=== PATIENT | male | born 1985 | race Hispanic/Latino ===

== ENCOUNTER 2024-03-26 13:48 | Emergency (ER) | payer SELFPAY ==
[~2024-03-26] VITALS: Ht 165.1 cm; Wt 86.2 kg
--- NOTE | 2024-03-26 13:54 | ERN ---
ED Note History of Present Illness Stated Complaint: HEADACHE Chief Complaint: Headache Time Seen by MD: 13:50 Dictation: PATIENT IS A 38-YEAR-OLD MALE COMING IN WITH COMPLAINTS OF A BILATERAL FRONTAL HEADACHE WORSE ON THE RIGHT ONSET WAS FRIDAY. NO FEVER NO CHILLS NO NAUSEA VOMITING STATES HE HAS HAD A CLEAR RUNNY NOSE. STATES HE WAS SICK LAST WEEK HOWEVER DID NOT GO SEEK MEDICAL ATTENTION, DOES NOT HAVE A PRIMARY CARE DOCTOR. HE STATES HE TOOK TYLENOL EARLIER THIS MORNING WITHOUT RELIEF. [facility] IS 0 STATE GAIT IS STEADY TO TRIAGE AND HE DROVE HIMSELF TO THE EMERGENCY ROOM. Allergies: Coded Allergies: No Known Drug Allergies (Unverified Allergy, Unknown, 03/26/24) Past Medical History PSYCH History: no pertinent psych hx RN Note Reviewed/Agreed w/PFSH: Yes Review of System Dictation CONSTITUTIONAL: NEGATIVE EXCEPT FOR HPI HEAD/FACE: NEGATIVE EXCEPT FOR HPI EENT: NEGATIVE EXCEPT FOR HPI SINUS HEADACHE RESPIRATORY: NEGATIVE EXCEPT FOR HPI GASTROINTESTINAL/ABDOMINAL: NEGATIVE EXCEPT FOR HPI GENITOURINARY: NEGATIVE EXCEPT FOR HPI MUSCULOSKELETAL: NEGATIVE EXCEPT FOR HPI INTEGUMENTARY: NEGATIVE EXCEPT FOR HPI NEUROLOGICAL/PSYCH: NEGATIVE EXCEPT FOR HPI HEMATOLOGIC/LYMPHATIC: NEGATIVE EXCEPT FOR HPI ALL SYSTEMS NEGATIVE, EXCEPT NOTED ABOVE. 13 POINT REVIEW OF SYSTEMS ASSESSED AND ALL NEGATIVE EXCEPT FOR ABOVE. Initial Vital Sign VS Vital Signs Date Time Temp Pulse Resp B/P (MAP) Pulse Ox O2 Delivery O2 Flow Rate FiO2 03/26/24 13:49 97.9 82 20 170/110 99 Room Air 0 Physical Exam Dictation VITAL SIGNS REVIEWED GENERAL APPEARANCE: ALERT, ORIENTED X 3, MILD ACUTE DISTRESS, WELL DEVELOPED, NOURISHED. HEAD AND FACE: NON-TRAUMATIC. EYES: PERRL, PINK CONJUNCTIVAS, EYELID NO TRAUMA, ANTERIOR CHAMBER WITH ARCUS SENILIS. EARS: PINNAS INTACT AND NO SIGNS OF TRAUMA OR ERYTHEMA EAR CANALS CLEAR AND NO DISCHARGE TM NO ERYTHEMA NOSE: CLEAR DISCHARGE, NO BLEEDING. MILD FRONTAL SINUS TENDERNESS WITH PALPATION OROPHARYNX: MOUTH NORMAL, TONGUE PINK, PHARYNX CLEAR,NO ERYTHEMA, TONSILS NO EXUDATES, NO ABSCESSES NOTED, MUCOUS MEMBRANE MOIST NECK: SUPPLE, NON-TENDER, NO THYROMEGALY, NO MASSES, NO JVD, NO BRUITS BREAST:DEFERRED CHEST:NO TENDERNESS, NO CREPITUS, NO PARADOXICAL MOVEMENT, NO RETRACTIONS LUNGS:CLEAR, WELL-VENTILATED, SYMMETRIC, NO RALES, NO WHEEZING, NO RHONCHI, NO STRIDOR, GOOD BREATH SOUNDS BILATERALLY HEART: REGULAR RATE, REGULAR RHYTHM, NO MURMUR, NO GALLOPS VASCULAR: NO PERIPHERAL EDEMA, ABDOMEN: SOFT, POSITIVE BOWEL SOUNDS, NONDISTENDED, NO GUARDING, NONTENDER, NO REBOUND, NO MASSES NO HEPATOMEGALY, NO SPLENOMEGALY, NO CASTILLO'S SIGN, NO HERNIAS. RECTAL: DEFERRED GENITAL: DEFERRED NEUROLOGICAL: NORMAL SPEECH, MOTOR FUNCTION INTACT, SENSORY FUNCTION INTACT MUSCULOSKELETAL: NECK NONTENDER, FULL RANGE OF MOTION, BACK NONTENDER, FULL RANGE OF MOTION, EXTREMITIES: NONTENDER, FULL RANGE OF MOTION SKIN: COLOR PINK, DRY, NO TURGOR, NO RASH, NO LACERATIONS, NO ABRASIONS, NO CONTUSIONS. LYMPHATIC: DEFERRED Results (Laboratory/Radiology) Laboratory/Radiology Laboratory Tests Test 03/26/24 14:40 SARS-CoV-2 Antigen (Rapid) PRESUMPTIVE NEGATIVE Labs Reviewed?: Yes ED Course ED Course Orders Procedure Category Date Status Time Dexamethasone 4mg/Ml PHA 03/26/24 Complete 1ml Vial (Dexametha 14:00 Ibuprofen 800 Mg Tab PHA 03/26/24 Complete (Motrin) 14:00 Covid19 (Sars Antigen LAB 03/26/24 Complete Rapid) 13:54 Current Medications Medications (Trade) Dose Ordered Sig/Radha Route PRN Reason Start Time Stop Time Status Last Admin Dose Admin Dexamethasone Sodium Phosphate (dexaMETHasone 4MG/ML 1ML VIAL) 8 mg ONCE ONCE IM 03/26/24 14:00 03/26/24 14:05 DC 03/26/24 14:11 Ibuprofen (moTRIN) 800 mg ONCE ONCE PO 03/26/24 14:00 03/26/24 14:05 DC 03/26/24 14:11 Vital Signs Date Time Temp Pulse Resp B/P (MAP) Pulse Ox O2 Delivery O2 Flow Rate FiO2 03/26/24 13:49 97.9 82 20 170/110 99 Room Air 0 1545, PATIENT STATES PAIN IS MARKEDLY REDUCED AFTER TREATMENT. PATIENT CONTINUES TO BE HYPERTENSIVE, WE WILL PRESCRIBE ENALAPRIL5 MG P.O. DAILY AND HAVE PATIENT FOLLOW UP WITH ONE OF THE DOCTORS ON THE LIST PROVIDED HIM IN THE NEXT 2-3 DAYS. Medical Decision Making MDM MEDICAL DISCHARGE MAKING BASED ON EMPIRIC TREATMENT FOR TENSION HEADACHE, SWABS FOR COVID-19. SWAB NEGATIVE PAIN RELIEVED AFTER TREATMENT. PATIENT INFORMED OF HIS HYPERTENSION DIAGNOSES AND WE WILL BE PRESCRIBED ENALAPRIL 5 MG DAILY GIVEN A LIST OF THE PRIMARY CARE DOCTORS [place] [facility] [place] IN [place]EXT SEVERAL [place]. DX & DISP Disposition: Discharge Departure Impression: Primary Impression: Acute headache Additional Impression: Hypertension Condition: Stable Scripts Enalapril Maleate (Enalapril Maleate) 5 Mg Tablet 1 TAB PO DAILY for 30 Days, #30 TAB 0 Refills Prov: YESY BEASLEY NP 03/26/24 Additional Instructions: FOLLOW-UP WITH PRIMARY CARE PROVIDER IN 1 TO 2 DAYS. TAKE MEDICATIONS DIRECTED HERE IN THE EMERGENCY ROOM. OKAY TO CONTINUE HOME MEDICATIONS UNLESS OTHERWISE DISCUSSED DURING YOUR VISIT IN THE EMERGENCY ROOM TODAY. RETURN TO YOUR NEAREST EMERGENCY ROOM IF SYMPTOMS WORSEN OR IF THERE IS NO IMPROVEMENT. CALL 911 IF YOU NEED IMMEDIATE ASSISTANCE. TAKE TYLENOL OR MOTRIN [id number] NEEDED AND IF NO CONTRAINDICATIONS ARE PRESENT. INCREASE ORAL HYDRATION. A WOUND CULTURE OR URINE CULTURE WAS ORDERED HERE IN THE EMERGENCY ROOM DEPARTMENT PLEASE FOLLOW-UP WITH PRIMARY CARE PROVIDER AND ADVISE THEM TO GET REPEAT PORTS FROM OUR FACILITY. IF YOU HAD ANY YOSI WRAP/SPLINTS THAT WERE APPLIED HERE, PLEASE DO NOT REMOVE THEM UNTIL YOU SEE YOUR PRIMARY CARE OR SPECIALTY. TAKE TYLENOL OR LEAVE [id number] NEEDED FOR PAIN. TAKE YOUR BLOOD PRESSURE MEDICATION DIRECTED DAILY. FOLLOW UP WITH ONE OF THE DOCTORS ON THE LIST PROVIDED YOU IN THE NEXT 2-3 DAYS FOR MANAGEMENT OF YOUR BLOOD PRESSURE. Time of Disposition: 15:47 I have reviewed the case, and I agree with, Diagnosis and Plan YESY BEASLEY NP Mar 26, 2024 13:54
[2024-03-26] MEDS: ibuPROFEN 800 MG TAB PO ONE (14:11)
[2024-03-26] MEDS: dexaMETHasone SOD PHOSPHATE 4 MG/ML 1ML VIAL IM ONE (14:11)
[2024-03-26] MEDS ORDERED: ENAL-87 PO (15:48)
[2024-03-26 16:42] VITALS: BP 160/89; PULSE 72; RESP 16; TEMP 98; O2SAT 98
== END 2024-03-26 16:43 | disposition home or self-care (01) ==
LOC: EDH 13:48
DX: R51.9 Headache, unspecified (principal); I10 Essential (primary) hypertension; Z20.822 Contact with and (suspected) exposure to COVID-19
CPT/HCPCS: 99283; 87426; 96372; J1100

== ENCOUNTER 2024-09-05 22:16 | Emergency (ER) | payer SELFPAY ==
[~2024-09-05] VITALS: Ht 157.5 cm; Wt 95.3 kg
[~2024-09-05 22:16] MED LIST: ENAL-87 PO
--- NOTE | 2024-09-05 22:40 | ERN ---
ED Note History of Present Illness Stated Complaint: LEFT FOOT NUMBNESS Chief Complaint: Numbness Time Seen by MD: 22:31 Time Seen by Midlevel: 22:33 Dictation: 38-year-old male coming in with complaints of tingling sensation to the left foot onset 5:00 a.m.. Patient states he has a history of hypertension noncompliant. States he took his blood pressure medication just today at 6:30 a.m. because he thought that was a reason he was having these symptoms, but does not remember the name of the medication that he took. Denies any unilateral weakness, slurred speech, headache, dizziness. Patient has full range of motion to all extremities at the time of triage. Patient also states last night he did cocaine. Allergies: Coded Allergies: No Known Drug Allergies (Unverified Allergy, Unknown, 03/26/24) Home Meds Active Scripts Metformin HCl (Metformin HCl) 500 Mg Tablet, 1 TAB PO DAILY for 10 Days, #60 TAB 0 Refills Prov:JASON CORNELL EARLY CHILDHOOD 09/06/24 Enalapril Maleate (Enalapril Maleate) 5 Mg Tablet, 1 TAB PO DAILY for 30 Days, #30 TAB 0 Refills Prov:YESY BEASLEY [employer]ARLY CHILDHOOD 03/26/24 Past Medical History Past Medical History: Hypertension, Other Additional Past Medical Hx: NON COMPLIANT Surgical History: None, Unknown Review of System Dictation Constitutional: Negative for fever,chills, and weight loss Eyes: Negative for injury, pain,redness, and discharge ENT: Negative for injury,pain or swelling Cardiovascular: Negative for chest pain, palpitations, and edema Respiratory: Negative for shortness of breath, cough, and wheezing, Abdomen/GI: Negative for abdominal pain, nausea, vomiting, diarrhea, and constipation Back: Negative for injury and pain : Negative for injury, bleeding and discharge MS/Extremity: Negative for injury and deformity Skin: Negative for rash, and discoloration Neuro: Negative for headache, weakness, numbness, " tingling" sensation upon touch in the left foot Psych: Negative for suicide ideation, homicidal ideation, and hallucinations Review of Systems: was completed Initial Vital Sign VS Vital Signs Date Time Temp Pulse Resp B/P (MAP) Pulse Ox O2 Delivery O2 Flow Rate FiO2 09/05/24 22:17 98.1 113 20 163/113 99 Room Air 09/05/24 23:46 0 21 Physical Exam Dictation General: awake, alert, NAD Head/Face: Normocephalic, atraumatic Eyes: PERRL, EOMI, vision at baseline ENT: oral cavity clear, TMs clear, no signs of infection Neck: Trachea midline, supple, no nuchal rigidity Cardiovascular: RRR, normal S1/S2, No MRGs, no JVD Respiratory: CTAB, no respiratory distress, No rales or wheezes Abdomen: Soft, non-tender, non-distended, normal bowel sounds, no guarding or rebound. Skin: Warm, dry, normal turgor, no rash MS/Extremity: Pulses equal, no cyanosis, neurovascular intact, FROM Neuro: COAx4, GCS 15, strength 5/5, CN 2-12 intact, normal cerebellar exam, normal gait, used a blunt needle to press on patient's foot, patient is able to feel me touching his foot with a needle. Patient states the time that he ambulates he feels a ball" the bottom of the foot. Psych: Normal behavior, mood, and affect normal Results (Laboratory/Radiology) Laboratory/Radiology Laboratory Tests Test 09/05/24 22:47 09/06/24 00:28 White Blood Count 10.3 K/uL (4.8-10.8) Red Blood Count 5.22 MIL/uL (4.50-6.20) Hemoglobin 15.0 g/dL (14.0-18.0) Hematocrit 44.2 % (42-54) Mean Corpuscular Volume 84.7 fL (79-99) Mean Corpuscular Hemoglobin 28.7 pg (27.0-33.0) Mean Corpuscular Hemoglobin Concent 33.9 g/dL (32.0-36.0) Red Cell Distribution Width 12.7 % (11.0-15.5) Platelet Count 245 K/uL (130-400) Mean Platelet Volume 10.4 fL (7.5-10.5) Immature Granulocyte % (Auto) 0.3 % (0-1) Neutrophils (%) (Auto) 62.6 % (40.0-77.0) Lymphocytes (%) (Auto) 27.7 % (21.0-51.0) Monocytes (%) (Auto) 7.4 % (3.0-13.0) Eosinophils (%) (Auto) 1.6 % (0.0-8.0) Basophils (%) (Auto) 0.4 % (0.0-5.0) Neutrophils # (Auto) 6.4 K/uL (1.8-7.7) Lymphocytes # (Auto) 2.8 K/uL (1.0-4.8) Monocytes # (Auto) 0.8 K/uL (0.1-1.0) Eosinophils # (Auto) 0.16 K/uL (0.00-0.70) Basophils # (Auto) 0.04 K/uL (0.00-0.20) Absolute Immature Granulocyte (auto 0.03 K/uL (0-1) Nucleated Red Blood Cells 0.0 % (0.0-0.19) Sodium Level 138 mmol/L (136-145) Potassium Level 3.6 mmol/L (3.5-5.1) Chloride Level 100 mmol/L (101-111) L Carbon Dioxide Level 26 mmol/L (21-32) Blood Urea Nitrogen 16 mg/dL (7-18) Creatinine 0.9 mg/dL (0.5-1.3) Glomerular Filtration Rate Calc 113 mL/min (>90) Random Glucose 355 mg/dL (70-105) H Total Calcium 8.4 mg/dL (8.5-10.1) L Troponin I High Sensitivity < 4 ng/L (4-75) L Whole Blood Glucose 328 MG/DL (70-110) H Labs Reviewed?: Yes ED Course ED Course Orders Procedure Category Date Status Time Cbc With Differential LAB 09/05/24 Complete 22:36 Basic Metabolic Panel LAB 09/05/24 Complete 22:36 12 Lead Ekg Tracing- EKG 09/05/24 Complete Technical 22:36 Troponin I High LAB 09/05/24 Complete Sensitivity 22:36 0.9%Nacl 1000ml (Ns PHA 09/05/24 Complete 1000ml) 23:45 Insulin Regular, PHA 09/05/24 Complete Human 3ml (Humulin R 23:45 0.9%Nacl 1000ml (Ns PHA 09/06/24 In Process 1000ml) 00:38 Current Medications Medications (Trade) Dose Ordered Sig/Radha Route PRN Reason Start Time Stop Time Status Last Admin Dose Admin Insulin Human Regular (humuLIN R 100 UNIT/ML 3ML) 7 unit ONCE STAT IV 09/05/24 23:45 09/05/24 23:49 DC 09/06/24 00:04 Sodium Chloride 1,000 ml @ 1,000 mls/hr Q1H STAT IV 09/05/24 23:45 09/06/24 00:42 DC 09/06/24 00:04 Sodium Chloride 1,000 ml @ 1,000 mls/hr Q1H STAT IV 09/06/24 00:38 09/06/24 01:37 Vital Signs Date Time Temp Pulse Resp B/P (MAP) Pulse Ox O2 Delivery O2 Flow Rate FiO2 09/05/24 23:46 98.6 97 18 142/68 98 Room Air* 0 21 09/05/24 22:17 98.1 113 20 163/113 99 Room Air Medical Decision Making MDM MDM:38-year-old male coming in with complaints of tingling sensation to the left foot onset 5:00 a.m.. Patient states he has a history of hypertension noncomp liant. States he took his blood pressure medication just today at 6:30 a.m. because he thought that was a reason he was having these symptoms, but does not remember the name of the medication that he took. Denies any unilateral weak ness, slurred speech, headache, dizziness. Patient has full range of motion to all extremities at the time of triage. Patient also states last night he did cocaine. CBC shows no leukocytosis, no anemia, no thrombocytopenia. Chemistry shows no electrolyte abnormality. Glucose is 3055. Troponin is negative. Carbon dioxide is 26. Low suspicion for DKA. Discussed with the patient that elevated blood sugar could be the reason why his foot is a sleeps called diabetic neuropathy. Patient states he was unaware that he was diabetic. BP in in the rest of the vital signs have remained stable throughout his stay. We will give fluids and insulin bring down the sugar and have patient follow up outpatient with his PCP. Differential diagnosis: Paresthesias, electrolyte abnormality, dehydration, Rationale: Tests considered and ordered secondary to shared decision making include: Previous outside records reviewed: Old ER visits. Risk of complication and/or morbidity or mortality of patient management: None Medications-Per medication reconciliation Need for hospitalization: Patient does not meet criteria for hospitalization. Need for emergency major/minor surgery: No There are no social concerns with this patient. Prescription drug management Prescriptions will include symptomatic care Patient's prior external medical records from other ER visits were reviewed by me as indicated. Prior testing and results from previous visits were reviewed. Prior tests were taken into account with medical decision making and resource utilization, independent historian/historians were used to obtain complete medical history. I independently interpreted the test that were performed, results were reviewed by me and considered findings on radiology if ordered. Medical management and examination interpretation discussions were had by me with other qualified healthcare professionals as indicated for the patient's care. DX & DISP Disposition: Discharge Departure Impression: Primary Impression: Neuropathy Additional Impression: Diabetes mellitus, new onset Condition: Stable Scripts Metformin HCl (Metformin HCl) 500 Mg Tablet 1 TAB PO DAILY for 10 Days, #10 TAB 0 Refills Prov: JASON CORNELL NP 09/06/24 Additional Instructions: Stop eating sugar, take medications as prescribed. You need to follow up with your PCP and taking medication as prescribed or you will have complications. Stop doing drugs. Return to the hospital if you have any worsening symptoms. Referrals: SELF,REFERRAL (PCP) Time of Disposition: 00:45 I have reviewed the case, and I agree with, Diagnosis and Plan JASON CORNELL NP September 05, 2024 22:40
--- NOTE | 2024-09-05 22:45 | EKG ---
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
[2024-09-05 22:56] LABS: BASOPHILS # (AUTO) 0.04 K/uL (0.00-0.20); BASOPHILS % (AUTO) 0.4 % (0.0-5.0); EOSINOPHILS # (AUTO) 0.16 K/uL (0.00-0.70); EOSINOPHILS % (AUTO) 1.6 % (0.0-8.0); HEMATOCRIT 44.2 % (42-54); IMMATURE GRANULOCYTE ABSOLUTE 0.03 K/uL (0-1); LYMPHOCYTES # (AUTO) 2.8 K/uL (1.0-4.8); LYMPHOCYTES % (AUTO) 27.7 % (21.0-51.0); MEAN CORPUSCULAR HEMOGLOBIN 28.7 pg (27.0-33.0); MEAN CORPUSCULAR HGB CONC 33.9 g/dL (32.0-36.0); MEAN CORPUSCULAR VOLUME 84.7 fL (79-99); MONOCYTES # (AUTO) 0.8 K/uL (0.1-1.0); MONOCYTES % (AUTO) 7.4 % (3.0-13.0); NEUTROPHILS # (AUTO) 6.4 K/uL (1.8-7.7); NEUTROPHILS % (AUTO) 62.6 % (40.0-77.0); PLATELET COUNT (AUTO) 245 K/uL (130-400); RED BLOOD CELL COUNT(AUTO) 5.22 MIL/uL (4.50-6.20); RED CELL DISTRIBUTION WIDTH 12.7 % (11.0-15.5); WHITE BLOOD COUNT (AUTO) 10.3 K/uL (4.8-10.8)
[2024-09-05 23:17] LABS: CREATININE 0.9 mg/dL (0.5-1.3); POTASSIUM 3.6 mmol/L (3.5-5.1)
[2024-09-06] MEDS: 0.9%NACL 1000ML 1,000 ML IV STA ×2 (00:04→00:46)
[2024-09-06] MEDS: INSULIN humuLIN R 100 UNIT/ML 3ML IV STA (00:04)
[2024-09-06] MEDS ORDERED: METF-444 PO (00:24)
[2024-09-06 01:06] VITALS: BP 136/72; PULSE 98; RESP 20; TEMP 98.2; O2SAT 99
== END 2024-09-06 01:22 | disposition home or self-care (01) ==
LOC: EDH 22:16
DX: E11.40 Type 2 diabetes mellitus with diabetic neuropathy, unspecified (principal); I10 Essential (primary) hypertension; Z79.84 Long term (current) use of oral hypoglycemic drugs; Z79.899 Other long term (current) drug therapy
CPT/HCPCS: 99284; 84484; 80048; 85025; 82948; 36415; 93005; 96374; 96361; J1815; J7030 ×2

== ENCOUNTER 2024-09-06 15:34 | Emergency (ER) | payer SELFPAY ==
[~2024-09-06] VITALS: Ht 157.5 cm; Wt 86.2 kg
[~2024-09-06 15:34] MED LIST changes: +METF-444 PO
--- NOTE | 2024-09-06 17:24 | HMCIMG ---
ULTRASOUND ARTERIAL DUPLEX LEFT LOWER EXTREMITY, UNILATERAL INDICATION: Left leg numbness TECHNIQUE: Routine grayscale, color Doppler, and power Doppler ultrasound of the left lower extremity arteries were obtained. COMPARISON: None FINDINGS: Velocities in cm/sec WRONG ADDRESS CLERK: 88 SFA: Prox 88, Mid 83, Distal 76 Popliteal 72 proximally and 70 distally Anterior Tibial 69 distally Posterior Tibial 75 Dorsalis Pedis 59 Triphasic flow along the left lower extremity arterial system except for biphasic along the distal left anterior tibial artery as well as along the left dorsalis pedis artery. IMPRESSION: No evidence for high-grade flow-rate limiting stenosis. Parameters as reported.
[2024-09-06 17:42] LABS: BASOPHILS # (AUTO) 0.03 K/uL (0.00-0.20); BASOPHILS % (AUTO) 0.3 % (0.0-5.0); EOSINOPHILS # (AUTO) 0.18 K/uL (0.00-0.70); EOSINOPHILS % (AUTO) 2.1 % (0.0-8.0); IMMATURE GRANULOCYTE ABSOLUTE 0.01 K/uL (0-1); LYMPHOCYTES # (AUTO) 2.5 K/uL (1.0-4.8); LYMPHOCYTES % (AUTO) 28.4 % (21.0-51.0); MEAN CORPUSCULAR HEMOGLOBIN 28.7 pg (27.0-33.0); MONOCYTES # (AUTO) 0.6 K/uL (0.1-1.0); MONOCYTES % (AUTO) 6.4 % (3.0-13.0); NEUTROPHILS # (AUTO) 5.4 K/uL (1.8-7.7); NEUTROPHILS % (AUTO) 62.7 % (40.0-77.0); PLATELET COUNT (AUTO) 236 K/uL (130-400); RED BLOOD CELL COUNT(AUTO) 5.29 MIL/uL (4.50-6.20); RED CELL DISTRIBUTION WIDTH 12.8 % (11.0-15.5); WHITE BLOOD COUNT (AUTO) 8.6 K/uL (4.8-10.8)
[2024-09-06] MEDS: 0.9%NACL 1000ML 1,000 ML IV SCH (17:42)
[2024-09-06 17:57] LABS: CREATININE 0.8 mg/dL (0.5-1.3)
--- NOTE | 2024-09-06 17:58 | ERN ---
General Chief Complaint: FOOT INJURY/PAIN Stated Complaint: NUMBNESS IN LEFT FOOT SINCE YESTERDAY Time Seen by MD: 15:40 Source: patient History of Present Illness Initial Comments PATIENT IS A 38-YEAR-OLD MALE COMING IN TO BE EVALUATED FOR LEFT FOOT NUMBNESS. PER PATIENT HE WAS SEEN BEFORE AND WAS TOLD THAT HE HAD NEUROPATHY OF THE LOWER EXTREMITY. HE STATES THAT HE WAS NOT NEVER AWARE THAT HE WAS A DIABETIC AND IN HIS BARELY STARTED ON MEDICATION YESTERDAY. Allergies: Coded Allergies: No Known Drug Allergies (Unverified Allergy, Unknown, 03/26/24) Home Meds Active Scripts Metformin HCl (Metformin HCl) 500 Mg Tablet, 1 TAB PO DAILY for 10 Days, #10 TAB 0 Refills Prov:JASON CORNELL ENVIRONMENTAL HEALTH AIDE 09/06/24 Enalapril Maleate (Enalapril Maleate) 5 Mg Tablet, 1 TAB PO DAILY for 30 Days, #30 TAB 0 Refills Prov:YESY BEASLEY ENVIRONMENTAL HEALTH AIDE 03/26/24 Past Medical History Past Medical History: Diabetes-Type II, Hypertension, Other Medical History Other: NON COMPLIANT Past Surgical History: None, Unknown ROS Dictation CONSTITUTIONAL: NO CHILLS, NO FEVER, NO WEAKNESS, NO DIAPHORESIS, NO MALAISE. HEAD/FACE: NO SIGNS OF TRAUMA. EENT: NO EYE PAIN, NO BLURRED VISION, NO TEARING, NO DOUBLE VISION, NO EAR PAIN, NO EAR DISCHARGE, NO NOSE PAIN, NO NASAL CONGESTION, NO THROAT PAIN, NO THROAT SWELLING, NO MOUTH PAIN. RESPIRATORY: NO COUGH, NO ORTHOPNEA, NO SOB, NO STRIDOR, NO WHEEZING. CARDIOVASCULAR: NO CHEST PAIN, NO EDEMA, NO PALPITATIONS, NO SYNCOPE. GASTROINTESTINAL/ABDOMINAL: NO ABDOMINAL PAIN, NO CONSTIPATION, NO DIARRHEA, NO NAUSEA, NO VOMITING. GENITOURINARY: NO ABNORMAL DISCHARGE, NO DYSURIA, NO FREQUENT URINATION, NO HEMATURIA. NO COMPLAINTS OF PAIN IN THE GENITALS. MUSCULOSKELETAL: NO BACK PAIN, NO GOUT, NO JOINT PAIN, NO JOINT SWELLING, NO MUSCLE PAIN, NO MUSCLE STIFFNESS, NO NECK PAIN. INTEGUMENTARY: NO CHANGE IN COLOR, NO CHANGE IN HAIR/NAILS, NO DRYNESS, NO LESION, NO LUMPS, NO RASH. NEUROLOGICAL/PSYCH: NO ANXIETY, NOT DEPRESSED, NO EMOTIONAL PROBLEM, NO HEADACHE, NO NUMBNESS, NO PRE-EXISTING DEFICIT, NO HISTORY OF SEIZURES, NO TREMORS, NO WEAKNESS. HEMATOLOGIC/LYMPHATIC: NOT ANEMIC, NO HISTORY OF BLOOD CLOTS, NO APPARENT BLEEDING, NO BRUISING, GLANDS NOT SWOLLEN. ALL SYSTEMS NEGATIVE, EXCEPT NOTED. Physical Exam Physical Exam Dictation VITAL SIGNS: REVIEWED. GENERAL APPEARANCE: ALERT, ORIENTED X3, NO ACUTE DISTRESS, OBESE. HEAD AND FACE: NON-TRAUMATIC. EYES: PERRL, PINK CONJUNCTIVAS, EYELID NO TRAUMA, ANTERIOR CHAMBER CLEAR. EARS: PINNAS INTACT AND NO SIGNS OF TRAUMA OR ERYTHEMA. EAR CANALS CLEAR AND NO DISCHARGE. TMS NO ERYTHEMA. NOSE: NO DISCHARGE, NO BLEEDING. OROPHARYNX: MOUTH NORMAL, TEETH NO CARIES, TONGUE PINK. PHARYNX CLEAR, NO ERYTHEMA. TONSILS NO EXUDATES, NO ABSCESSES NOTED. MUCOUS MEMBRANE MOIST. NECK: SUPPLE, NON-TENDER, NO THYROMEGALY, NO MASSES, NO JVD, NO BRUITS. BREAST: DEFERRED. CHEST: NO TENDERNESS, NO CREPITUS, NO PARADOXICAL MOVEMENT, NO RETRACTIONS. LUNGS: CLEAR, WELL-VENTILATED, SYMMETRIC, NO RALES, NO WHEEZING, NO RHONCHI, NO STRIDOR, GOOD BREATH SOUNDS BILATERALLY. HEART: REGULAR RATE, REGULAR RHYTHM, NO MURMUR, NO GALLOPS. VASCULAR: NO PERIPHERAL EDEMA. ABDOMEN: SOFT, POSITIVE BOWEL SOUNDS, NONDISTENDED, NO GUARDING, NONTENDER, NO REBOUND, NO MASSES NO HEPATOMEGALY, NO SPLENOMEGALY, NO CASTILLO'S SIGN, NO HERNIAS. RECTAL: DEFERRED. GENITAL: DEFERRED. NEUROLOGICAL: NORMAL SPEECH, GROSS MOTOR FUNCTION INTACT, GROSS SENSORY FUNCTION INTACT. MUSCULOSKELETAL: NECK NONTENDER, FULL RANGE OF MOTION, BACK NONTENDER, FULL RANGE OF MOTION. EXTREMITIES: NONTENDER, FULL RANGE OF MOTION. SKIN: COLOR PINK, DRY, NO TURGOR, NO RASH, NO LACERATIONS, NO ABRASIONS, NO CONTUSIONS. LYMPHATICS: DEFERRED. Results Laboratory and Microbiology Lab and Micro Result Laboratory Tests Test 09/06/24 17:35 White Blood Count 8.6 K/uL (4.8-10.8) Red Blood Count 5.29 MIL/uL (4.50-6.20) Hemoglobin 15.2 g/dL (14.0-18.0) Hematocrit 46.0 % (42-54) Mean Corpuscular Volume 87.0 fL (79-99) Mean Corpuscular Hemoglobin 28.7 pg (27.0-33.0) Mean Corpuscular Hemoglobin Concent 33.0 g/dL (32.0-36.0) Red Cell Distribution Width 12.8 % (11.0-15.5) Platelet Count 236 K/uL (130-400) Mean Platelet Volume 10.4 fL (7.5-10.5) Immature Granulocyte % (Auto) 0.1 % (0-1) Neutrophils (%) (Auto) 62.7 % (40.0-77.0) Lymphocytes (%) (Auto) 28.4 % (21.0-51.0) Monocytes (%) (Auto) 6.4 % (3.0-13.0) Eosinophils (%) (Auto) 2.1 % (0.0-8.0) Basophils (%) (Auto) 0.3 % (0.0-5.0) Neutrophils # (Auto) 5.4 K/uL (1.8-7.7) Lymphocytes # (Auto) 2.5 K/uL (1.0-4.8) Monocytes # (Auto) 0.6 K/uL (0.1-1.0) Eosinophils # (Auto) 0.18 K/uL (0.00-0.70) Basophils # (Auto) 0.03 K/uL (0.00-0.20) Absolute Immature Granulocyte (auto 0.01 K/uL (0-1) Nucleated Red Blood Cells 0.0 % (0.0-0.19) Sodium Level 137 mmol/L (136-145) Potassium Level 4.0 mmol/L (3.5-5.1) Chloride Level 102 mmol/L (101-111) Carbon Dioxide Level 24 mmol/L (21-32) Blood Urea Nitrogen 12 mg/dL (7-18) Creatinine 0.8 mg/dL (0.5-1.3) Glomerular Filtration Rate Calc 117 mL/min (>90) Random Glucose 279 mg/dL (70-105) H Total Calcium 8.8 mg/dL (8.5-10.1) Labs Reviewed?: Yes EKG/XRAY/US/CT/MRI Ultrasound Comment [place] [id number] [address] IMAGING REPORT Signed PATIENT: LUANNE ROJAS MR#: [id number] : 1985 SEX: M AGE: 38 LOCATION: [facility] ORDER 36 STATUS: REG ER REPORT#: [id number] SERVICE 35 REASON: LEFT LOWER EXTREMITY ORDERING PHYSICIAN: TYSON LANCASTER MD PROCEDURE: ART U LE - US ARTERIAL UNILA LOW EXT DUPL ULTRASOUND ARTERIAL DUPLEX LEFT LOWER EXTREMITY, UNILATERAL INDICATION: Left leg numbness TECHNIQUE: Routine grayscale, color Doppler, and power Doppler ultrasound of the left lower extremity arteries were obtained. COMPARISON: None FINDINGS: Velocities in cm/sec HEAD INSPECTOR AND CENTER MARKER: 88 SFA: Prox 88, Mid 83, Distal 76 Popliteal 72 proximally and 70 distally Anterior Tibial 69 distally Posterior Tibial 75 Dorsalis Pedis 59 Triphasic flow along the left lower extremity arterial system except for biphasic along the distal left anterior tibial artery as well as along the left dorsalis pedis artery. IMPRESSION: No evidence for high-grade flow-rate limiting stenosis. Parameters as reported. DICTATED BY: IBETH BLUNT MD DATE: 09/06/241720 ELECTRONICALLY SIGNED BY: IBETH BLUNT MD DATE: 09/06/241723 [facility] MDM: DIFFERENTIAL DIAGNOSIS: DIABETIC NEUROPATHY, DEHYDRATION, RATIONALE: TESTS CONSIDERED AND ORDERED SECONDARY TO SHARED DECISION MAKING I NCLUDE: PREVIOUS OUTSIDE RECORDS REVIEWED: OLD ER VISITS. PATIENT IS A 38-YEAR-OLD MALE COMING IN TO BE EVALUATED FOR LEFT LEG NUMBNESS. PATIENT WAS RECENTLY DIAGNOSED WITH A NEUROPATHY SECONDARY TO DIABETES IV FLUIDS WERE GIVEN PATIENT FEELS BETTER WILL BE DISCHARGED IN STABLE CONDITION WITH A DIAGNOSIS OF DIABETIC NEUROPATHY WITH THE HYDRATION. I DID ADVISED HIM APPROPRIATE FOLLOW UP WITH PCP FOR LONG-TERM MANAGEMENT. ED Course Orders Procedure Category Date Status Time Cbc With Differential LAB 09/06/24 Complete 16:36 Basic Metabolic Panel LAB 09/06/24 Complete 16:36 0.9%Nacl 1000ml (Ns PHA 09/06/24 In Process 1000ml) 17:00 Us Arterial Unila Low US 09/06/24 Resulted Ext Dupl 16:36 Current Medications Medications (Trade) Dose Ordered Sig/Radha Route PRN Reason Start Time Stop Time Status Last Admin Dose Admin Sodium Chloride 1,000 ml @ 0 mls/hr ONCE IV 09/06/24 17:00 09/07/24 16:59 09/06/24 17:42 Vital Signs Date Time Temp Pulse Resp B/P (MAP) Pulse Ox O2 Delivery O2 Flow Rate FiO2 09/06/24 16:56 97.9 90 16 127/77 99 Room Air* 0 21 09/06/24 15:47 97.9 90 16 127/77 99 Room Air 0 DX & DISP Disposition: Discharge Departure Impression: Primary Impression: Neuropathy Additional Impression: Diabetes mellitus, new onset Condition: Stable Additional Instructions: FOLLOW-UP WITH PRIMARY CARE PROVIDER IN 1 TO 2 DAYS. TAKE MEDICATIONS DIRECTED HERE IN THE EMERGENCY ROOM. OKAY TO CONTINUE HOME MEDICATIONS UNLESS OTHERWISE DISCUSSED DURING YOUR VISIT IN THE EMERGENCY ROOM TODAY. RETURN TO YOUR NEAREST EMERGENCY ROOM IF SYMPTOMS WORSEN OR IF THERE IS NO IMPROVEMENT. CALL 911 IF YOU NEED IMMEDIATE ASSISTANCE. TAKE TYLENOL [id number] NEEDED AND IF NO CONTRAINDICATIONS ARE PRESENT. INCREASE ORAL HYDRATION. A WOUND CULTURE OR URINE CULTURE WAS ORDERED HERE IN THE EMERGENCY ROOM DEPARTMENT PLEASE FOLLOW-UP WITH PRIMARY CARE PROVIDER AND ADVISE THEM TO GET REPEAT PORTS FROM OUR FACILITY. IF YOU HAD ANY YOSI WRAP/SPLINTS THAT WERE APPLIED HERE, PLEASE DO NOT REMOVE THEM UNTIL YOU SEE YOUR PRIMARY CARE OR SPECIALTY. REFERRALS: Referrals: SELF,REFERRAL (PCP) PATRICIA COSTA MD Time of Disposition: 18:59 TYSON LANCASTER MD September 06, 2024 17:58
[2024-09-06 19:20] VITALS: BP 122/70; PULSE 82; RESP 16; TEMP 97.9; O2SAT 99
== END 2024-09-06 19:21 | disposition home or self-care (01) ==
LOC: EDH 15:34
DX: E11.40 Type 2 diabetes mellitus with diabetic neuropathy, unspecified (principal); I10 Essential (primary) hypertension; Z79.84 Long term (current) use of oral hypoglycemic drugs; Z79.899 Other long term (current) drug therapy
CPT/HCPCS: 99284; 93926; 80048; 85025; 36415; J7030